=== PATIENT | male | born 1995 | race Caucasian/White ===

== ENCOUNTER 2017-10-23 09:57 | Emergency (ER) | payer BC ==
[~2017-10-23] VITALS: Ht 170.2 cm; Wt 61.2 kg
[2017-10-23] MEDS ORDERED: LIDOCAINE HCL 1% LOCAL INJ 20 ML VIAL INJ ONE (10:15)
--- NOTE | 2017-10-23 11:31 | Diagnostic Imaging Report ---
Fingers Indication: Parshall embedded in finger Technique: Three views of the right second digit obtained Comparison: None Findings: There is a curvilinear foreign body the ventral soft tissues of the second digit at the IP joint. No projection through the bones. The osseous structures are intact. No focal osseous lesions. IMPRESSION: Fish hook in the finger as described above. No osseous injury. Signed by: Dr. Fabiola Antonio MD on 10/23/2017 11:28 AM
[2017-10-23 11:48] VITALS: BP 136/82
== END 2017-10-23 11:54 | disposition home or self-care (01) ==
LOC: ER 09:57
DX: S61.240A Puncture wound with foreign body of right index finger without damage to nail, initial encounter (principal); W26.8XXA Contact with other sharp object(s), not elsewhere classified, initial encounter; W45.8XXA Other foreign body or object entering through skin, initial encounter; Y93.19 Activity, other involving water and watercraft; Y92.830 Public park as the place of occurrence of the external cause
CPT/HCPCS: 64450; 73140; 99283; J2001